=== PATIENT | female | born 1980 | race Caucasian/White ===

== ENCOUNTER → 2016-05-18 | Outpatient (REF) | payer OTHER | LOC: M LAB REF 16:51 | PROVIDERS: ATTEND Internal Medicine Endocrinology, Diabetes & Metabolism | DX: E04.2 Nontoxic multinodular goiter (principal) ==

== ENCOUNTER → 2016-05-22 | Outpatient (REF) | payer OTHER | LOC: M SFHCLERA 12:23 | PROVIDERS: ATTEND Nurse Practitioner Family | DX: R30.0 Dysuria (principal) ==

== ENCOUNTER → 2017-06-06 | Outpatient (CLI) | payer OTHER ==
[2017-06-06 10:06] LABS: HCG, SERUM QUANTITATIVE < 1.0 MIU/ML
== END ==
LOC: M LAB 09:20
DX: E28.9 Ovarian dysfunction, unspecified (principal)

== ENCOUNTER → 2018-02-04 | Outpatient (REF) | payer OTHER | LOC: M SFHCLERA 09:49 | DX: J02.9 Acute pharyngitis, unspecified (principal) ==

== ENCOUNTER 2018-05-26 11:35 | Observation (INO) | payer OTHER ==
[~2018-05-26] VITALS: Ht 162.6 cm; Wt 103.5 kg
[~2018-05-26 11:35] MED LIST: predniSONE 20 MG TAB PO SCH
[2018-05-26] MEDS ORDERED: LEVO50TA5 PO (12:03)
[2018-05-26] MEDS ORDERED: VITA400D PO (12:03)
[2018-05-26] MEDS ORDERED: SUDATAB15 PO (12:31)
[2018-05-26 13:10] LABS: BASO % 0.5 % (0.0-1.0); EOS # 0.1 10^3/uL (0.0-0.50); EOS % 2.1 % (0.0-3.0); HEMATOCRIT 39.5 % (36.0-47.0); HEMOGLOBIN 13.2 g/dl (12.0-15.5); LYMPH # 1.6 10^3/uL (1.5-4.5); LYMPH % 25.4 % (24.0-44.0); MEAN CORPUSCULAR HEMOGLOBIN 29.3 pg (27.0-33.0); MEAN CORPUSCULAR HGB CONC 33.4 g/dl (32.0-36.5); MEAN CORPUSCULAR VOLUME 87.6 fl (80.0-96.0); MONO # 0.4 10^3/uL (0.0-0.8); MONO % 6.4 % (0.0-5.0); NEUTROPHILS % 65.1 % (36.0-66.0); PLATELET COUNT, AUTOMATED 238 10^3/uL (150-450); RED BLOOD COUNT 4.51 10^6/uL (4.00-5.40); WHITE BLOOD COUNT 6.1 10^3/uL (4.0-10.0)
[2018-05-26 13:24] LABS: INR 1.07
[2018-05-26 13:40] LABS: ALT/SGPT 41 U/L (12-78); BILIRUBIN,TOTAL 0.4 MG/DL (0.2-1.0); BLOOD UREA NITROGEN 10 MG/DL (7-18); CALCIUM LEVEL 8.6 MG/DL (8.5-10.1); CARBON DIOXIDE LEVEL 26 MEQ/L (21-32); CHLORIDE LEVEL 104 MEQ/L (98-107); GLOMERULAR FILTRATION RATE > 60.0 (>60); GLUCOSE, FASTING 91 MG/DL (70-100); MAGNESIUM LEVEL 2.6 MG/DL (1.8-2.4); POTASSIUM SERUM 3.8 MEQ/L (3.5-5.1); SODIUM LEVEL 139 MEQ/L (136-145); TOTAL PROTEIN 7.5 GM/DL (6.4-8.2)
--- NOTE | 2018-05-26 15:01 | REP ---
Clinical: Left-sided paresthesia Comparison: None Technique: Axial 3-D [id number] noncontrast source images with 3-D multiplanar re-formations. Findings: Vasculature to the bilateral hemispheres appears symmetric and normal without areas of attenuation to suggest occlusion or stenosis. No evidence for arteriovenous malformation or aneurysm. No obvious abnormality. Impression: Normal MRA of the brain. Electronically Signed by Ilya Stone MD 05/26/2018 02:53 P
[2018-05-26] MEDS ORDERED: LORazepam 2 MG TAB PO STA (15:28)
--- NOTE | 2018-05-26 15:59 | REP ---
Clinical: Abnormality by MRI . Comparison: None . Findings: The ventricles, sulci, and cisterns are normal in position and appearance. Hancock-white differentiation is maintained. No acute intracranial hemorrhage, mass/mass effect, pathology or trauma/injury. The small abnormal focus of decreased signal in the left cerebellum on MRI does not correspond to significant finding on CT and suggests the possibility of a small cavernoma. No evidence for acute infarction. No extra-axial fluid collection. Calvarium is intact. Paranasal sinuses and mastoid air cells are clear. Impression: 1. Normal noncontrast head CT. 2. No evidence for acute intracranial pathology or trauma/injury. 3. No abnormality identified in the left cerebellar hemisphere and in conjunction with MRI suggests the possibility of a small occult cavernoma. Electronically Signed by Ilya Stone MD 05/26/2018 03:50 P
[2018-05-26] MEDS ORDERED: HAIRTAB5 PO (17:26)
[2018-05-26] MEDS ORDERED: SYNT50TA PO (17:26)
[2018-05-26] MEDS ORDERED: VITA500046 PO (17:26)
[2018-05-26 20:17] VITALS: BP 118/69
--- NOTE | 2018-05-26 21:34 | HPE ---
DATE OF ADMISSION: 05/26/2018 A 37-year-old female with a past medical history of hypothyroidism presents to the emergency room with ringing in her left ear followed by numbness that moved toward her entire left side of her face. This happened this morning. She also complains of mild band-like numbness in the back of her head. No visual disturbances. No motor deficits otherwise. She has never had similar symptoms in the past. She did have a common cold approximately a week ago. No history of cold sores. She had an MRI of the brain done, which was normal. Dr. Wang was called by the emergency room (ER) attending. The recommendation was likely Rodriguez's palsy, and prednisone is to be started. Patient will be admitted for further management. PAST MEDICAL HISTORY: Hypothyroidism. ALLERGIES: AMOXICILLIN, CLAVULANIC ACID, and DEXTROMETHORPHAN. FAMILY HISTORY: Noncontributory. SOCIAL HISTORY: Patient denies tobacco. Drinks socially. Does not use illicit drugs. HOME MEDICATIONS: - cholecalciferol 5000 units orally daily - Synthroid 50 mcg orally daily - pseudoephedrine 30 mg orally every 4 hours as needed REVIEW OF SYSTEMS: Negative for all 10 major systems except for what is mentioned in the history of present illness (HPI). VITAL SIGNS: Blood pressure is 144/74, heart rate 67 and regular, respirations 17, temperature 99, oxygen saturation 100% on room air. HEAD: Atraumatic, normocephalic. NECK: Supple. No jugular venous distention (JVD). LUNGS: Clear to auscultation. S1, S2 audible. No murmurs appreciated. ABDOMEN: Soft. Positive bowel sounds. No pedal edema. SKIN: Intact. NEUROLOGIC: Strength +5 bilaterally. Cranial nerves are grossly intact. Gross sensation impaired in her left facial region as well as bilateral upper extremities. She is awake, alert, oriented times three. LABORATORY DATA: WBC 6.1, hemoglobin 13.2, hematocrit 39.5, platelets are 328,000. Sodium 139, potassium 3.8, chloride 104, CO2 of 26, BUN 10, creatinine 0.9, fasting glucose is 91. IMPRESSION: Rodriguez's palsy. PLAN: Patient will be admitted to medical/surgical floor. Will give the patient oral prednisone at 60 daily. Will have neurology see the patient in the morning. Will continue her preadmission medications and continue her care on the medical/surgical floor.
[2018-05-26] MEDS ORDERED: ACETAMINOPHEN TAB 650MG DOSE (2X325MG) PO ONE (22:30)
[2018-05-26] MEDS: PSEUDOEPHEDRINE 30 MG TAB PO PRN (22:57)
[2018-05-27 06:00] VITALS: BP 113/64
--- NOTE | 2018-05-27 07:25 | ECGEPIP ---
Stationary ECG Study [facility] - ED Test Date: 2018-05-26 Pat Name: MECHE JAIME Department: Room: - Gender: F Acupuncture Physician: : [id number] Requested By: Violet Kee Order Number: [id number] Reading MD: Violet Kee Measurements Intervals Union Rate: 73 P: 46 NM: 166 QRS: 18 QRSD: 101 T: 14 QT: 408 QTc: 453 Interpretive Statements SINUS RHYTHM NO PRIOR FOR COMPARISON Electronically Signed On 05-27-2018 7:24:34 EST by Violet Kee
[2018-05-27 08:00] VITALS: BP_SYST 121; BP_SYST 125; BP_DIAS 65; BP_DIAS 66
[2018-05-27 08:01] VITALS: BP 126/74
[2018-05-27] MEDS ORDERED: LEVOTHYROXINE 50MCG TABLET (0.05MG) PO SCH (09:00)
[2018-05-27] MEDS ORDERED: VITAMIN D 1,000 INTERNATIONAL UNITS TABLET PO SCH (09:00)
[2018-05-27] MEDS: PSEUDOEPHEDRINE 30 MG TAB PO PRN (11:40)
[2018-05-27] MEDS ORDERED: PRED20TA PO (13:19)
[2018-05-27 14:00] VITALS: BP 137/78
[2018-05-27] MEDS ORDERED: LORazepam 0.5 MG TAB PO PRN (14:45)
[2018-05-27] MEDS ORDERED: MECL-86 PO (14:57)
--- NOTE | 2018-05-27 15:20 | DSES ---
DATE OF ADMISSION: 05/26/2018 DATE OF DISCHARGE: 05/27/2018 PRINCIPLE DIAGNOSIS: Left-sided facial nerve palsy. HISTORY: Gloria Painting is a 37-year-old, whose primary care provider is [facility]. She had numbness on the left side of her face, hyperacusis/tinnitus and a bit of dizziness. She came to the urgent care. They perceived some nystagmus so she was sent to the emergency room. Brain imaging was unremarkable. MRI was normal. MRA was normal CT was unremarkable. Patient by history and exam has a facial nerve palsy but she was admitted anyway. PHYSICAL EXAMINATION: Vital signs stable. General Appearance: She has a minimal left upper lip weakness. No facial droop, forehead wrinkles normally bilaterally. There is actually no nystagmus. Coordination normal to [id number] testing. Normal strength in the upper extremities. Pupils equal and reactive to light. Labs are unremarkable. IMPRESSION: Facial nerve palsy. PLAN: I really do not think she belongs in the hospital. Unfortunately, there have been a lot of concern expressed to her by her providers about her possibly having a stroke or MS, which then lead to a lot of nervousness on her part. I have asked Dr. Wang from neurology to see her and if he concurs with the diagnosis, we will discharge her on prednisone 60 mg daily for 5 days. edited: 05/28/2018 0724 tkf MTDD
[2018-05-27 16:00] VITALS: BP 134/74
[2018-05-27] MEDS ORDERED: predniSONE 20 MG TAB PO SCH (21:00)
[2018-05-28] MEDS ORDERED: LEVOTHYROXINE 50MCG TABLET (0.05MG) PO SCH (06:00)
--- NOTE | 2018-05-29 06:15 | REP ---
Clinical: Left-sided paresthesia. Technique: Standard noncontrast MRI of the brain sequencing. Comparison: None. Findings: There is a small rounded decreased signal intensity focus in the left cerebellar hemisphere which may reflect small area of chronic calcification or foreign body. Remainder of the examination appears normal. No evidence for intracranial hemorrhage, mass, infarction, or extra-axial collection. No evidence for mass effect or midline shift. Midbrain and midline structures are symmetric and normal. Ventricles are symmetric and normal. Impression: 1. Small rounded focus of decreased signal intensity in the left cerebellar hemisphere of uncertain etiology possible cavernoma or calcification. 2. Otherwise normal noncontrast MRI of the brain. No further acute pathology appreciated. Electronically Signed by Ilya Stone MD 05/29/2018 06:08 A
[2018-05-29 14:17] LABS: IgG P18 AB Absent (.); IgG P23 AB Absent (.); IgG P28 AB Absent (.); IgG P30 AB Absent (.); IgG P39 AB Absent (.); IgG P41 AB Present (.); IgG P45 AB Absent (.); IgG P66 AB Absent (.); IgG P93 AB Absent (.); IgM P23 AB Absent (.); IgM P39 AB Absent (.); IgM P41 AB Absent (.); LYME IgG WB INTERPRETATION Negative (.); LYME IgM WB INTERPRETATION Negative (.)
[2018-05-30 00:07] LABS: Lyme Disease IgG/IgM Antibodie <0.91 ISR (0.00-0.90); Lyme Disease IgM Ab Quantitati <0.80 index (0.00-0.79)
== END 2018-05-27 18:43 | disposition home or self-care (01) ==
LOC: M ED 11:35 → EDBD 11:35 → M ED INP 18:40 → M MS5PR 20:17
PROVIDERS: ADMIT Internal Medicine; ATTEND Internal Medicine Nephrology
DX: G51.8 Other disorders of facial nerve (principal); E03.9 Hypothyroidism, unspecified; Z88.0 Allergy status to penicillin; Z79.899 Other long term (current) drug therapy

== ENCOUNTER → 2018-09-14 | Outpatient (CLI) | payer OTHER ==
[~2018-09-14] MED LIST changes: +HAIRTAB5 PO; +LEVO50TA5 PO; +MECL-86 PO; +PRED20TA PO; +SUDATAB15 PO; +SYNT50TA PO; +VITA400D PO; +VITA500046 PO; -predniSONE 20 MG TAB PO SCH
--- NOTE | 2018-09-14 12:38 | REP ---
MRI LEFT ELBOW: TECHNIQUE: Multiple sequences in the axial, coronal and sagittal planes. The biceps tendon, triceps, brachialis and brachial radialis appear intact with no abnormal signal. There is no tear of the medial or lateral collateral ligaments. There is mild increased signal on T2-weighted images in the common extensor tendon at its insertion onto the lateral humeral epicondyle compatible with mild tendinitis. There is no abnormal signal in the common flexor tendon medially. Ulnar nerve demonstrates no signal abnormality with no evidence of ulnar neuritis. No ganglion cyst is seen. There is a normal amount of joint fluid. There is no occult fracture. Normal bone marrow signal is seen. There is no osteochondral lesion at the elbow joint. IMPRESSION: Mild tendinitis of the common extensor tendon at its insertion onto the lateral humeral epicondyle . No other significant abnormality. Electronically Signed by Jaycob Hancock MD 09/18/2018 09:58 A
== END ==
LOC: M PLARAD 09:01
PROVIDERS: ATTEND Physician Assistant
DX: M25.522 Pain in left elbow (principal); R20.0 Anesthesia of skin; M77.12 Lateral epicondylitis, left elbow